=== PATIENT | female | born 1995 | race Caucasian/White ===

== ENCOUNTER 2019-04-07 11:49 | Emergency (ER) | payer BC ==
[~2019-04-07] VITALS: Ht 154.9 cm; Wt 53.6 kg
[2019-04-07] MEDS ORDERED: bcp (11:56)
[2019-04-07 12:39] LABS: BASO % 0.2 % (0.0-1.0); EOS # 0.1 10^3/uL (0.0-0.50); EOS % 0.6 % (0.0-3.0); HEMATOCRIT 44.6 % (36.0-47.0); HEMOGLOBIN 15.7 g/dl (12.0-15.5); LYMPH # 1.2 10^3/uL (1.5-6.5); LYMPH % 12.6 % (24.0-44.0); MEAN CORPUSCULAR HEMOGLOBIN 32.3 pg (27.0-33.0); MEAN CORPUSCULAR HGB CONC 35.2 g/dl (32.0-36.5); MEAN CORPUSCULAR VOLUME 91.8 fl (80.0-96.0); MONO # 0.6 10^3/uL (0.0-0.8); MONO % 5.8 % (0.0-5.0); NEUTROPHILS % 80.5 % (36.0-66.0); PLATELET COUNT, AUTOMATED 292 10^3/uL (150-450); RED BLOOD COUNT 4.86 10^6/uL (4.00-5.40); WHITE BLOOD COUNT 9.9 10^3/uL (4.0-10.0)
[2019-04-07 13:07] LABS: BLOOD UREA NITROGEN 4 MG/DL (7-18); CALCIUM LEVEL 9.6 MG/DL (8.5-10.1); CARBON DIOXIDE LEVEL 29 MEQ/L (21-32); CHLORIDE LEVEL 111 MEQ/L (98-107); CREATININE FOR GFR 0.53 MG/DL (0.55-1.30); GLOMERULAR FILTRATION RATE > 60.0 (>60); GLUCOSE, FASTING 95 MG/DL (70-100); POTASSIUM SERUM 4.9 MEQ/L (3.5-5.1); SODIUM LEVEL 142 MEQ/L (136-145)
[2019-04-07 13:49] LABS: HCG, SERUM QUALITATIVE NEGATIVE (NEGATIVE)
[2019-04-07] MEDS ORDERED: SODIUM CHLORIDE 0.9% 1000ML IV SCH (15:30)
[2019-04-07] MEDS ORDERED: PANTOPRAZOLE 40MG INJ (PROTONIX) (C9113) IV ONE (15:30)
[2019-04-07 16:04] LABS: C REACTIVE PROTEIN QUANTITATIV 0.38 MG/DL (0.00-0.30)
[2019-04-07] MEDS: GASTROGRAFIN SOLUTION 30ML PO SCH ×2 (16:10→16:40)
[2019-04-07 16:21] LABS: ERYTHROCYTE SEDIMENTATION RATE 3 mm/hr (0-20)
[2019-04-07] MEDS ORDERED: ISOVUE-370 76% 100ML VIAL (Q9967) As Ordered ONE (17:32)
[2019-04-07 18:25] LABS: INR 1.08; PARTIAL THROMBOPLASTIN TIME 28.1 SECONDS (25.0-38.4); PROTHROMBIN TIME 13.7 SECONDS (11.8-14.0)
--- NOTE | 2019-04-07 18:33 | REPVR ---
EXAM: CT Abdomen and Pelvis With Contrast EXAM DATE/TIME: 04/07/2019 5:37 PM CLINICAL HISTORY: 23 years old, female; Abdominal pain; Generalized; Additional info: R/O inflamm bowel dz TECHNIQUE: Imaging protocol: Axial computed tomography images of the abdomen and pelvis with intravenous contrast. Coronal and sagittal reformatted images were created and reviewed.Oral contrast was administered. Radiation optimization: All CT scans at this facility use at least one of these dose optimization techniques: automated exposure control; mA and/or kV adjustment per patient size (includes targeted exams where dose is matched to clinical indication); or iterative reconstruction. Contrast material: ISOVUE 370;Contrast volume: 100 ml;Contrast route: IV; COMPARISON: No relevant prior studies available. FINDINGS: Liver: Normal. No mass. Gallbladder and bile ducts: Normal. No calcified stones. No ductal dilation. Pancreas: Normal. No ductal dilation. Spleen: Normal. No splenomegaly. Adrenals: Normal. No mass. Kidneys and ureters: Normal. No hydronephrosis. Stomach and bowel: Moderate circumferential wall thickening of the distal descending colon and the proximal sigmoid colon, with mild adjacent inflammation. No adjacent abscess. No colonic diverticula are identified. No bowel wall pneumatosis. No bowel obstruction. Appendix: No evidence of appendicitis. Intraperitoneal space: Normal. No free air. No significant fluid collection. Vasculature: Normal. No abdominal aortic aneurysm. Lymph nodes: Normal. No enlarged lymph nodes. Bladder: Unremarkable as visualized. Reproductive: Unremarkable as visualized. Bones/joints: No acute fracture. No dislocation. Soft tissues: Incidental umbilical piercing. IMPRESSION: Acute regional colitis involving the distal descending and proximal sigmoid colon. Electronically signed by: Linnea Monteiro On 04/07/2019 18:33:08 PM
[2019-04-07 21:23] VITALS: BP 124/89
[2019-04-16] MEDS ORDERED: SPRI28TA PO (11:36)
== END 2019-04-07 21:26 | disposition home or self-care (01) ==
LOC: M ED 11:49
DX: K52.9 Noninfective gastroenteritis and colitis, unspecified (principal); K64.9 Unspecified hemorrhoids
CPT/HCPCS: 74177; 80048; 81001; 84702; 84703; 85025; 85610; 85652; 85730; 86140; 87507; 96374; 99284; C9113; Q9963; Q9967

== ENCOUNTER 2019-04-24 07:51 | Day surgery (SDC) | payer BC ==
[~2019-04-24] VITALS: Ht 154.9 cm; Wt 50.3 kg
[~2019-04-24 07:51] MED LIST: NS 1,000 ML IV ONE; SPRI28TA PO; bcp
[2019-04-24] MEDS ORDERED: PROPOFOL 500 MG/50 ML VIAL As Ordered ONE (08:35)
[2019-04-24] MEDS ORDERED: LIDOCAINE 2% INJ 100 MG/5 ML SDV (FOR ANES.) As Ordered ONE (08:35)
--- NOTE | 2019-04-24 08:54 | ROOR ---
Patient Name: Mariann Geiger Procedure Date: 04/24/2019 8:34 AM Date of : 1995 Age: 23 Room: [facility] Gender: Female Note Status: Finalized Procedure: Colonoscopy Indications: Hematochezia, Abnormal CT of the GI tract, Follow-up of acute ischemic colitis Providers: Garth ELDRIDGE MD Referring MD: 1. No Referring Physician 1. No Referring Physician, Admin. Requesting Provider: Medicines: Monitored Anesthesia Care Complications: No immediate complications. Procedure: Pre-Anesthesia Assessment: - The heart rate, respiratory rate, oxygen saturations, blood pressure, adequacy of pulmonary ventilation, and response to care were monitored throughout the procedure. The Colonoscope was introduced through the anus and advanced to 10 cm into the ileum. The colonoscopy was performed without difficulty. The patient tolerated the procedure well. The quality of the bowel preparation was good. Findings: The perianal and digital rectal examinations were normal. Retroflexion in the right colon was performed. The colon (entire examined portion) appeared normal. The terminal ileum appeared normal. Impression: - The entire colon is normal. - The terminal ileum is normal. - No specimens collected. Recommendation: - Use fiber, for example Citrucel, Fibercon, Konsyl or Metamucil. - Avoid constipation. Start fiber supplement and high fiber diet. - Return to my office PRN. Garth Eldridge MD Garth ELDRIDGE MD 04/24/2019 8:53:47 AM Electronically signed by Garth ELDRIDGE MD Number of Addenda: 0 Note Initiated On: 04/24/2019 8:34 AM Estimated Blood Loss: Estimated blood loss: none.
[2019-04-24 09:12] VITALS: BP 98/72
== END 2019-04-24 09:13 | disposition home or self-care (01) ==
LOC: M OPP 07:51
PROVIDERS: ATTEND Internal Medicine Gastroenterology
DX: K62.1 Rectal polyp (principal); K55.039 Acute (reversible) ischemia of large intestine, extent unspecified; R93.3 Abnormal findings on diagnostic imaging of other parts of digestive tract; Z79.3 Long term (current) use of hormonal contraceptives